=== PATIENT | female | born 1990 | race Caucasian/White ===

== ENCOUNTER 2017-07-12 17:29 | Emergency (ER) | payer MEDICAID, OTHER ==
[~2017-07-12] VITALS: Ht 175.3 cm; Wt 66.0 kg
[~2017-07-12 17:29] MED LIST: CYCL-36 PO; LORT5TAB PO; NAPR500 PO
[2017-07-12 17:30] VITALS: BP 131/63; PULSE 104; RESP 20; TEMP 98.5; O2SAT 98
--- NOTE | 2017-07-12 17:41 | PD ---
Physical Exam Date Seen by Provider: Jul 12, 2017 Time Seen by Provider: 17:39 Narrative 26 YOWF C/O 5 DAYS OF NAUSEA AND UPPER ABD PAIN. NO F/C. LMP 07/03/17 VS REVIEWED WAITING FOR BED PLACEMENT (Jaiden Keita) Data Data Orders Orders Urinalysis - C+S If Indicated (07/12/17 17:42) Ed Urine Pregnancytest Poc (07/12/17 17:42) (Abel Hubbard MD) Labs Laboratory Tests Test 07/12/17 17:45 Urine Color YELLOW Urine Turbidity HAZY Urine pH 6.5 Urine Specific [place] 1.021 Urine Protein NEG mg/dL Urine Glucose (UA) NEG mg/dL Urine Ketones NEG mg/dL Urine Occult Blood NEG Urine Nitrite NEG Urine Bilirubin NEG Urine Urobilinogen LESS THAN 2.0 MG/DL Urine Leukocyte Esterase SMALL Urine RBC 2 /hpf Urine WBC 7 /hpf Urine Squamous Epithelial Cells 5 /hpf Urine Amorphous Sediment RARE Urine Bacteria OCC /hpf Urine Mucus FEW /lpf Microscopic Urinalysis Comment CULT NOT INDICATED (Abel Hubbard MD) MDM Supervised Visit with ROBERTO: No (Abel Hubbard MD) Jaiden Keita Jul 12, 2017 17:41 Abel Hubbard MD Aug 16, 2017 07:09
[2017-07-12 18:49] LABS: BACTERIA, URINE OCC /hpf; BLOOD, URINE NEG (NEG); COMMENT (UR) CULT NOT INDICATED; CULTURE IF INDICATED CULT NOT INDICATED; GLUCOSE,URINE NEG (NEG); KETONE, URINE NEG (NEG); MUCUS URINE FEW /lpf (OCC); NITRITE,URINE NEG (NEG); PH, URINE 6.5 (5.0-8.5); SQUAMOUS EPITHELIAL CELL URINE 5 /hpf (0-5); URINE COLOR YELLOW (YELLW/STRAW)
== END 2017-07-12 20:48 | disposition left against medical advice (07) ==
LOC: NED 17:29
DX: R11.0 Nausea (principal); R10.9 Unspecified abdominal pain
CPT/HCPCS: 81001; 84703; 99283